=== PATIENT | female | born 1970 | race Caucasian/White ===

== ENCOUNTER 2021-11-05 14:45 | Outpatient (CLI) | payer OTHER, BC, SELFPAY ==
--- NOTE | ~2021-11-05 | US_ITS ---
EXAMINATION: US venous doppler [facility] DATE: 11/05/2021 15:27 INDICATION: Bilateral lower limb swelling TECHNIQUE: Schulz scale images without and with compression and Doppler images of the bilateral lower e xtremity veins were obtained. COMPARISON: None FINDINGS: The right common femoral vein, profunda femoral vein, femoral vein, popliteal vein, peroneal trunk, p osterior tibial veins, and greater saphenous vein are patent. The left common femoral vein, profunda femoral vein, femoral vein, popliteal vein, peroneal trunk, po sterior tibial veins, and greater saphenous vein are patent. IMPRESSION: 1. Patent bilateral lower extremity veins. No evidence of deep venous thrombosis. Reviewed, dictated and finalized at location F. IMPRESSION: 1. Patent bilateral lower extremity veins. No evidence of deep venous thrombosi s.
== END 2021-11-05 14:46 | disposition home or self-care (01) ==
PROVIDERS: PCP Family Medicine; Visit Provider Physician Assistant
DX: M79.89 Other specified soft tissue disorders (principal)
CPT/HCPCS: 93970

== ENCOUNTER 2022-05-27 11:27 | Outpatient (CLI) | payer OTHER, SELFPAY ==
[2022-05-27 12:46] LABS: Influenza A QL RT-PCR Negative (Negative); Influenza B QL RT-PCR Negative (Negative); SARS-CoV-2 RNA PCR Negative
== END 2022-05-27 11:28 | disposition home or self-care (01) ==
LOC: ANHLAB 11:28
PROVIDERS: PCP Family Medicine; Visit Provider Physician Assistant
DX: R50.9 Fever, unspecified (principal); Z20.822 Contact with and (suspected) exposure to COVID-19
CPT/HCPCS: 87636

== ENCOUNTER 2023-10-06 00:32 | Day surgery (SDC) | payer OTHER, BC, SELFPAY ==
[2023-09-19 09:29] VITALS: BMI 42.5
[2023-10-06 11:47] VITALS: BP 153/85; PULSE 71; RESP 18; TEMP 36.3; O2SAT 97
[2023-10-06] MEDS: LACTATED RINGERS 1,000 ML 150 ML IV CONT (11:58)
[2023-10-06 12:02] LABS: Glucose Point of Care 98 mg/dl (65-105)
--- NOTE | 2023-10-06 12:02 | WPDANESEPPF ---
Anes - Initial Pre Proc Eval Procedure: Operation Date: 10/06/23 13:00 Proposed Procedures p Esophagogastroduodenoscopy&Screen Colon - Miguel Mccarthy MD Date/Time: 10/06/23 12:02 Surgeon: Miguel Mccarthy MD Pre Op Diagnosis: Moody's esophagus,GERD, Neoplasm Screening Patient Data Age: 53 Gender: F Height: 1.65 m Weight: 114.5 kg Last Vital Signs Temp 97.3 F L 10/06/23 11:47 Pulse 71 10/06/23 11:47 Resp 18 10/06/23 11:47 BP 153/85 H 10/06/23 11:47 Pulse Ox 97 10/06/23 11:47 O2 Del Method Room Air 10/06/23 11:47 Allergies Allergy/AdvReac Type Severity Reaction Status Date / Time amoxicillin Allergy Mild Gastrointestinal Verified 10/06/23 11:45 Upset lisinopril Allergy Unknown Cough Verified 10/06/23 11:45 Sulfa (Sulfonamide Allergy Unknown Rash Verified 10/06/23 11:45 Antibiotics) Home Medications Medication Instructions Recorded Confirmed Type albuterol sulfate 90 mcg/actuation 1 inh inhalation Q4H PRN shortness 05/27/22 09/19/23 Rx aerosol inhaler of breath or wheezing #8.5 grams pantoprazole 40 mg tablet,delayed 40 mg PO QAM #90 tabs 01/31/23 09/19/23 Rx release escitalopram oxalate 10 mg tablet See Rx Instructions .Route 05/03/23 09/19/23 Rx .COMPLEX #90 tabs losartan 50 mg tablet See Rx Instructions .Route 08/03/23 09/19/23 Rx .COMPLEX #90 tabs metformin 500 mg tablet,extended See Rx Instructions .Route 08/25/23 09/19/23 Rx release 24 hr .COMPLEX #120 tabs aspirin 81 mg chewable tablet 81 mg PO DAILY 09/19/23 09/19/23 History dulaglutide 0.75 mg/0.5 mL 0.75 mg (0.5 mL) subcut WEEKLY #2 09/27/23 10/06/23 Rx subcutaneous pen injector mL (Trulicity) Patient hx anesthesia problems: none Family hx anesthesia problems: none Results Review: All pre-operative results and documents have been reviewed as part of the pre-operative evaluation. PMFSH Past Medical History Medical History Anxiety Closed right trimalleolar fracture Cough Cough variant asthma Depression Gastroesophageal reflux disease without esophagitis HTN (hypertension) Mixed hyperlipidemia NAJMA (obstructive sleep apnea) Seasonal allergic rhinitis Family History Family History Mother Family history of gout Hypertension Family history of arthritis Father Hypertension Family history of cardiovascular disease Social History Social History Social History: Smoking status: Never smoker Second hand tobacco smoke exposure: No Alcohol intake: never Alcohol use details: Occasionally Substance use: never Substance use type: does not use Living arrangements: with family Occupation/Education: occupation Gender identity (if verbalized by the patient): Female Sexual Orientation (if Verbalized by the Patient): Straight or Heterosexual Spiritual care concerns: No Anes - Eval Final PreProcedure Day of Procedure 10/06/23 12:02 Patient weight: morbidly obese Heart: regular rate and rhythm Lungs: clear to auscultation Airway: Mallampati scale class II Neurological: alert and oriented Last oral intake: >/= 8 hours ASA classification: III Emergent: no Anesthetic plan: proceed Anesthesia type and monitoring: general GIVS and standard monitoring Results Review: All pre-operative results and documents have been reviewed as part of the pre-operative evaluation. Informed Consent: The patient's anesthetic plan and its attendant risks and benefits were discussed with the patient/family/POA. Questions were solicited and answers provided to the satisfaction of the patient/family/POA.
--- NOTE | 2023-10-06 12:33 | PM.HPGS ---
History of Present Illness History of Present Illness Consent: Risks, benefits, and alternatives have been discussed and questions answered. Patient agrees to proceed with procedure. 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, here for egd, also needs colonoscopy- last one 5 years ago- 2 aunts with colon cancer Review of Systems Review of Systems: All systems reviewed & are unremarkable except as noted in HPI and below PMFSH Past Medical History Medical History (Updated 10/06/23 @ 12:34 by Miguel Mccarthy MD) Anxiety Closed right trimalleolar fracture Colon cancer screening Cough Cough variant asthma Depression Gastroesophageal reflux disease without esophagitis HTN (hypertension) Mixed hyperlipidemia NAJMA (obstructive sleep apnea) Seasonal allergic rhinitis Family History Family History Mother Family history of gout Hypertension Family history of arthritis Father Hypertension Family history of cardiovascular disease Social History Social History Social History: Smoking status: Never smoker Second hand tobacco smoke exposure: No Alcohol intake: never Alcohol use details: Occasionally Substance use: never Substance use type: does not use Living arrangements: with family Occupation/Education: occupation Gender identity (if verbalized by the patient): Female Sexual Orientation (if Verbalized by the Patient): Straight or Heterosexual Spiritual care concerns: No Meds Home Medications and Allergies Home Medications Medication Instructions Recorded Confirmed Type albuterol sulfate 90 mcg/actuation 1 inh inhalation Q4H PRN shortness 05/27/22 09/19/23 Rx aerosol inhaler of breath or wheezing #8.5 grams pantoprazole 40 mg tablet,delayed 40 mg PO QAM #90 tabs 01/31/23 09/19/23 Rx release escitalopram oxalate 10 mg tablet See Rx Instructions .Route 05/03/23 09/19/23 Rx .COMPLEX #90 tabs losartan 50 mg tablet See Rx Instructions .Route 08/03/23 09/19/23 Rx .COMPLEX #90 tabs metformin 500 mg tablet,extended See Rx Instructions .Route 08/25/23 09/19/23 Rx release 24 hr .COMPLEX #120 tabs aspirin 81 mg chewable tablet 81 mg PO DAILY 09/19/23 09/19/23 History dulaglutide 0.75 mg/0.5 mL 0.75 mg (0.5 mL) subcut WEEKLY #2 09/27/23 10/06/23 Rx subcutaneous pen injector mL (Trulicity) Allergies Allergy/AdvReac Type Severity Reaction Status Date / Time amoxicillin Allergy Mild Gastrointestinal Verified 10/06/23 11:45 Upset lisinopril Allergy Unknown Cough Verified 10/06/23 11:45 Sulfa (Sulfonamide Allergy Unknown Rash Verified 10/06/23 11:45 Antibiotics) Vital Signs Vital Signs - 24 hr 10/06/23 11:47 Temperature 97.3 F L Pulse Rate 71 Respiratory Rate 18 Blood Pressure 153/85 H Pulse Oximetry 97 Oxygen Delivery Room Air Exam Const: General: comfortable and no acute distress HENMT: Face/Nose/Sinus: Normal nares present Eyes: General: appearance normal, both eyes and all related structures Neck: Neck: no JVD Resp: Auscultation: clear to auscultation bilaterally Cardio: Rate: regular rate Rhythm: regular rhythm GI: Inspection: non-distended GI Palp: Yes Soft to palpation Skin: General skin exam: normal color Neuro: General: gait normal Speech: normal speech Extrem: General: normal to inspection Psych: Mental Status: mental status grossly normal Assessment and Plan Assessment and plan (1) 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
--- NOTE | 2023-10-06 12:51 | SUR.OPER ---
EGD ended at 1246, colon began at 1251
[2023-10-06 13:11] VITALS: BP 126/73; PULSE 71; RESP 18; O2SAT 99
[2023-10-06 13:21] VITALS: BP 154/87; PULSE 63; RESP 22; O2SAT 100
[2023-10-06 13:31] VITALS: BP 169/92; PULSE 64; RESP 19; O2SAT 100
== END 2023-10-06 13:45 | disposition home or self-care (01) ==
PROVIDERS: PCP Family Medicine; Visit Provider Internal Medicine Gastroenterology
PROC: 0DJ08ZZ Inspection of Upper Intestinal Tract, Via Natural or Artificial Opening Endoscopic (ICD-10-PCS; CPT 43235; principal; 2023-10-06 13:00)
DX: Z12.11 Encounter for screening for malignant neoplasm of colon (principal); D12.4 Benign neoplasm of descending colon; D12.3 Benign neoplasm of transverse colon; K64.8 Other hemorrhoids; K29.50 Unspecified chronic gastritis without bleeding; I10 Essential (primary) hypertension; E78.2 Mixed hyperlipidemia; G47.33 Obstructive sleep apnea (adult) (pediatric); K21.9 Gastro-esophageal reflux disease without esophagitis; F41.9 Anxiety disorder, unspecified; J45.909 Unspecified asthma, uncomplicated; F32.A Depression, unspecified; E66.01 Morbid (severe) obesity due to excess calories; Z68.41 Body mass index [BMI] 40.0-44.9, adult; Z79.51 Long term (current) use of inhaled steroids; Z79.84 Long term (current) use of oral hypoglycemic drugs; Z79.82 Long term (current) use of aspirin; Z79.85 Long-term (current) use of injectable non-insulin antidiabetic drugs; Z80.0 Family history of malignant neoplasm of digestive organs; Z82.49 Family history of ischemic heart disease and other diseases of the circulatory system
CPT/HCPCS: 43239; 45380; 45385; 82948; 88305; J2704; J7120

== ENCOUNTER 2024-04-13 10:16 | Outpatient (CLI) | payer OTHER, SELFPAY ==
[2024-04-13 10:46] LABS: Alanine Aminotransferase 741 U/L (6-35); Albumin Level 4.9 g/dL (3.5-5.1); Alkaline Phosphatase 178 U/L (38-126); Anion Gap 7 mmol/L (4-12); Aspartate Amino Transferase 460 U/L (14-36); Blood Urea Nitrogen 22 mg/dL (7-17); Calcium 9.7 mg/dL (8.4-10.2); Carbon Dioxide 27 mmol/L (22-30); Chloride 108 mmol/L (98-107); Estimated Glomerular Filt Rate > 60; Glucose 126 mg/dL (65-110); Potassium 4.8 mmol/L (3.4-5.0); Sodium 142 mmol/L (137-145)
[2024-04-13 10:47] LABS: Amylase 46 U/L (30-110); Basophils Percent Auto 0.4 % (0.2-1.2); Eosinophils Absolute Auto 0.1 K/mm3 (0-0.3); Eosinophils Percent Auto 1.1 % (0-4.4); Hematocrit 42.7 % (37.0-47.0); Hemoglobin 13.5 g/dL (12.0-15.0); Immature Granulocyte Absolute 0.02 K/mm3 (0.00-0.031); Immature Granulocyte Percent A 0.4 % (0-0.5); Lipase 127 U/L (23-300); Lymphocytes Absolute Auto 1.27 K/mm3 (0.9-3.2); Lymphocytes Percent Auto 23.5 % (18.3-44.2); Mean Corpuscular HGB Conc 31.6 g/dl (32-36); Mean Corpuscular Hemoglobin 30.8 pg (26-34); Mean Corpuscular Volume 97.3 fl (80-100); Mean Platelet Volume 10.5 fl (7.4-10.4); Monocytes Absolute Auto 0.5 K/mm3 (0.1-0.6); Monocytes Percent Auto 8.3 % (2.6-8.5); Neutrophils Absolute Auto 3.6 K/mm3 (1.3-6.7); Neutrophils Percent Auto 66.3 % (45.5-73.1); Platelet Count Result 259 k/mm3 (150-375); Red Blood Count 4.39 M/mm3 (4.2-5.4); Red Cell Distribution Width 12.9 % (11.5-14.5); White Blood Count 5.4 K/mm3 (4.5-10.0)
== END 2024-04-13 10:17 | disposition home or self-care (01) ==
LOC: ANHLAB 10:17
PROVIDERS: PCP Family Medicine; Visit Provider Family Medicine
DX: R10.9 Unspecified abdominal pain (principal)
CPT/HCPCS: 36415; 80053; 82150; 83690; 85025

== ENCOUNTER 2024-04-13 10:32 | Outpatient (CLI) | payer OTHER, SELFPAY ==
--- NOTE | ~2024-04-13 | CT_ITS ---
EXAMINATION: CT abdomen pelvis wo con DATE: 04/13/2024 11:14 INDICATION: Unspecified abdominal pain. TECHNIQUE: Computed tomography (CT) of the abdomen and pelvis was performed without intravenous contr ast. Automated exposure control and iterative reconstruction technique were employed. The dose-length product was 942.34 mGy-cm. COMPARISON: None. FINDINGS: The visualized portions of the lung bases demonstrate mild atelectasis. No pleural effusion . The heart size is normal. No pericardial effusion. There is diffuse hepatic steatosis. There are ap proximately 6 masses in the liver measuring up to 3.6 cm. There is moderate intrahepatic biliary duct dilatation. The common duct is dilated to 2.0 cm. The gallbladder and spleen are normal. There is a 3.3 cm hypodense mass in the head of the pancreas. There is fat stranding around the head of the panc reas. The adrenal glands and kidneys are normal. There are no dilated loops of bowel. The appendix is not visualized. There are no pathologically enlarged lymph nodes. There is no free intraperitoneal f luid. There is mild thoracic and lumbar spondylosis. A small sclerotic lesion in right ilium is proba dustin a benign bone island. IMPRESSION: 1. Pancreatic mass with common bile duct stricture, consistent with primary malignancy. 2. Liver masses and peritoneal masses, consistent with metastatic disease. Ultrasound-guided core nee dle biopsy of a liver mass is recommended. Reviewed, dictated and finalized at location A. [facility] IMPRESSION: 1. Pancreatic mass with common bile duct stricture, consistent with primary mal ignancy. 2. Liver masses and peritoneal masses, consistent with metastatic disease. Ultr asound-guided core needle biopsy of a liver mass is recommended.
== END 2024-04-13 10:33 | disposition home or self-care (01) ==
LOC: MICIMG 10:32
PROVIDERS: PCP Family Medicine; Visit Provider Family Medicine
DX: K86.9 Disease of pancreas, unspecified (principal); K83.1 Obstruction of bile duct; R16.0 Hepatomegaly, not elsewhere classified; K66.9 Disorder of peritoneum, unspecified; R79.89 Other specified abnormal findings of blood chemistry
CPT/HCPCS: 74176